=== PATIENT | female | born 2000 | race African-American/Black ===

== ENCOUNTER 2022-03-21 19:08 | Emergency (ER) | payer OTHER ==
[2022-03-21 19:43] VITALS: BP 128/84; PULSE 98; RESP 22; TEMP 98.8; BMI 35.7
[2022-03-21] MEDS ORDERED: predniSONE 20 MG TABLET (UD) PO ONE (22:23)
[2022-03-21] MEDS ORDERED: predniSONE 20 MG TABLET (UD) ONE (22:24)
== END 2022-03-21 22:26 | disposition home or self-care (01) ==
LOC: JER 19:08
DX: J45.21 Mild intermittent asthma with (acute) exacerbation (principal)
CPT/HCPCS: 0241U-QW; 99283-25